=== PATIENT | male | born 1975 | race Asian ===

== ENCOUNTER 2019-01-05 21:50 | Emergency (ER) | payer BC ==
[~2019-01-05] VITALS: Ht 182.9 cm; Wt 124.7 kg
[2019-01-05 23:02] VITALS: BP 134/76; TEMP 99
== END 2019-01-05 23:08 | disposition home or self-care (01) ==
LOC: ED 21:50
DX: L02.412 Cutaneous abscess of left axilla (principal)
CPT/HCPCS: 87070; 87205; 99283

== ENCOUNTER 2019-09-27 21:52 | Emergency (ER) | payer BC ==
[~2019-09-27] VITALS: Ht 182.9 cm; Wt 124.7 kg
[2019-09-27 23:09] VITALS: BP 126/75; TEMP 98.4
== END 2019-09-27 23:09 | disposition home or self-care (01) ==
LOC: ED 21:52
DX: S16.1XXA Strain of muscle, fascia and tendon at neck level, initial encounter (principal); S29.012A Strain of muscle and tendon of back wall of thorax, initial encounter; S39.012A Strain of muscle, fascia and tendon of lower back, initial encounter; X50.9XXA Other and unspecified overexertion or strenuous movements or postures, initial encounter
CPT/HCPCS: 96372; 99283; J1885

== ENCOUNTER 2021-02-02 14:43 | Emergency (ER) | payer BC ==
[~2021-02-02] VITALS: Ht 182.9 cm; Wt 124.7 kg
[2021-02-02 15:32] LABS: PLATELET COUNT 275 K/uL (142-355)
[2021-02-02 15:35] LABS: POTASSIUM 4.2 mmol/L (3.6-5.2)
[2021-02-02 16:01] VITALS: BP 133/69; TEMP 98.8
== END 2021-02-02 16:01 | disposition home or self-care (01) ==
LOC: ED 14:43
PROVIDERS: Family Medicine
DX: J32.0 Chronic maxillary sinusitis (principal); J32.2 Chronic ethmoidal sinusitis; R51.9 Headache, unspecified; F17.210 Nicotine dependence, cigarettes, uncomplicated
CPT/HCPCS: 80053; 85027; 96372; 99283; J2175